=== PATIENT | male | born 1960 | race American Indian/Alaskan Native ===

== ENCOUNTER 2016-09-27 10:22 | Emergency (ER) | payer BC ==
[2016-09-27 10:34] VITALS: BP 147/95
== END 2016-09-27 13:51 | disposition left against medical advice (07) ==
LOC: ED 10:22
DX: S69.91XA Unspecified injury of right wrist, hand and finger(s), initial encounter (principal); F17.200 Nicotine dependence, unspecified, uncomplicated; X58.XXXA Exposure to other specified factors, initial encounter; Y93.89 Activity, other specified; Y99.9 Unspecified external cause status; Y92.89 Other specified places as the place of occurrence of the external cause; Z53.21 Procedure and treatment not carried out due to patient leaving prior to being seen by health care provider

== ENCOUNTER 2017-07-12 09:54 | Emergency (ER) | payer BC, OTHER ==
[2017-07-12 11:14] LABS: Bilirubin,Urine NEG (Negative); Blood,Urine LG (Negative); Color,Urine Yellow (Yellow); Mucus,Urine FEW /HPF; Nitrite,Urine NEG (Negative); Protein,Urine <15 mg/dL mg/dL (Negative); Urobilinogen,Urine < 2.0 mg/dL (<2.0)
[2017-07-12 12:33] LABS: Hematocrit 46.8 % (35.5-45.6); Mean Corpuscular HGB Conc 32 % (32-34); Mean Corpuscular Hemoglobin 32 pg (28-32); Mean Corpuscular Volume 100 fl (84-94); Platelet Count 168 K/mm3 (140-440); Red Blood Count 4.69 M/mm3 (3.65-5.03); Red Cell Distribution Width 13.3 % (13.2-15.2)
[2017-07-12 12:40] LABS: BUN/Creatinine Ratio 19; Blood Urea Nitrogen 17 mg/dL (9-20); Calcium 8.8 mg/dL (8.4-10.2); Hemolysis Index 10
--- NOTE | 2017-07-12 12:51 | Cat Scan Report ---
CT ABDOMEN PELVIS WITHOUT CONTRAST: HISTORY: Right sided renal colic, right flank pain. COMPARISON: none. TECHNIQUE: Helical CT in 1.25mm intervals without IV contrast. Sagittal and coronal reconstructions. FINDINGS: Lung bases: Normal. Liver: Normal. Biliary system: Normal. Pancreas: Normal. Spleen: Normal. Kidneys/ureters/bladder: Normal. Adrenal glands: Normal. Aorta: Normal. Intestines: Normal. Appendix: Normal. Pelvic viscera: Normal. Ascites: None. Adenopathy: None. Musculoskeletal: Normal. IMPRESSION: Unremarkable CT scan of the abdomen and pelvis without contrast.
--- NOTE | 2017-07-12 12:55 | Emergency Department Report ---
ED Male HPI - General Chief complaint: Urogenital-Male Stated complaint: BLOOD IN URINE Time Seen by Provider: 07/12/17 11:54 Source: patient Mode of arrival: Ambulatory Limitations: No Limitations - History of Present Illness Initial comments: 56-year-old male past medical history none presents with complaint of episode of hematuria/blood in ejaculate. Patient is awake alert and oriented 3 not in acute distress and nontoxic appearing. Fully lucid. Denies dysuria but does state he had one episode of hematuria and during intercourse yesterday had slightly bloody ejaculate. Patient noticed tiny amount of blood in his urine this morning. States he may have had right-sided flank pain earlier this week. Denies fever chills nausea vomiting. States he had slight nonproductive cough earlier this week. Patient does state that he is a smoker. Patient denies any rectal pain or difficulty defecating. MD Complaint: other (blood in ejaculate) Onset/Timin -: days(s) Location: penis blood in urine, other (blood in ejaculate) - Related Data Previous Rx's Medication Instructions Recorded Last Taken Type Lansoprazole [Prevacid] 15 mg PO BID #30 cap 09/30/14 Unknown Rx traMADol [Ultram] 50 mg PO Q6HR PRN #10 tablet 09/30/14 Unknown Rx Allergies Allergy/AdvReac Type Severity Reaction Status Date / Time No Known Allergies Allergy Unverified 09/30/14 07:09 ED Review of Systems ROS: Stated complaint: BLOOD IN URINE Other details as noted in HPI Constitutional: denies: chills, fever Eyes: denies: eye pain, eye discharge, vision change ENT: denies: ear pain, throat pain Respiratory: denies: cough, shortness of breath, wheezing Cardiovascular: denies: chest pain, palpitations Endocrine: no symptoms reported Gastrointestinal: denies: abdominal pain, nausea, diarrhea Genitourinary: as per HPI (blood in ejaculate). denies: urgency, dysuria Musculoskeletal: denies: back pain, joint swelling, arthralgia Skin: denies: rash, lesions Neurological: denies: headache, weakness, paresthesias Psychiatric: denies: anxiety, depression Hematological/Lymphatic: denies: easy bleeding, easy bruising ED Past Medical Hx - Past Medical History Previous Medical History?: No - Social History Smoking Status: Light Tobacco Smoker Substance Use Type: Alcohol - Medications Home Medications: Home Medications Medication Instructions Recorded Confirmed Last Taken Type Lansoprazole [Prevacid] 15 mg PO BID #30 cap 09/30/14 Unknown Rx traMADol [Ultram] 50 mg PO Q6HR PRN #10 tablet 09/30/14 Unknown Rx ED Physical Exam - General Limitations: No Limitations General appearance: alert, in no apparent distress - Head Head exam: Present: atraumatic, normocephalic - Eye Eye exam: Present: normal appearance, PERRL, EOMI - ENT ENT exam: Present: mucous membranes moist - Neck Neck exam: Present: normal inspection - Respiratory Respiratory exam: Present: normal lung sounds bilaterally. Absent: respiratory distress - Cardiovascular Cardiovascular Exam: Present: regular rate, normal rhythm. Absent: systolic murmur, diastolic murmur, rubs, gallop - GI/Abdominal GI/Abdominal exam: Present: soft (abdomen soft nontender nondistended for quadrants no suprapubic pain), normal bowel sounds - Rectal Rectal exam: Present: normal inspection (no rectal pain on JERMAINE) - exam: Present: normal inspection External exam: Present: normal external exam (no swelling no tenderness of testes bilaterally) - Extremities Exam Extremities exam: Present: normal inspection - Back Exam Back exam: Present: normal inspection, other (NO FLANK TENDERSS ON PERCUSSIOn b/ l) - Neurological Exam Neurological exam: Present: alert, oriented X3 - Psychiatric Psychiatric exam: Present: normal affect, normal mood - Skin Skin exam: Present: warm, dry, intact, normal color. Absent: rash ED Course Vital Signs 07/12/17 10:24 Temperature 99 F Pulse Rate 60 Respiratory 18 Rate Blood Pressure 121/72 O2 Sat by Pulse 99 Oximetry ED Medical Decision Making - Lab Data Result diagrams: 07/12/17 12:10 07/12/17 12:10 - Medical Decision Making A/P: Slight elevation in creatinine kinase, 1-2 episodes of hematuria/bloody ejaculate 1- I referred to [email or web address] recommendation on hematospermia media [email or web address] [email or web address]_type=[email or web address]_[email or web address] 2-CT scan shows no kidney stone 3-urine chlamydia and gonorrhea cultures sent, urine culture sent. Patient has no clinical signs of urethritis or prostatitis at this time 4-advised patient to follow up with urology and emphasized the importance of urologic follow-up. Patient stated he understood. I advised patient to return to the ED for any fevers chills dysuria persistent or large hematuria nausea vomiting or rectal pain. 5- patient tolerating by mouth fluids without difficulty with normal vital signs. I advised patient to remain well-hydrated to mitigate slight elevation in creatinine kinase. Patient has no overt clinical signs of rhabdomyolysis Critical care attestation.: If time is entered above; I have spent that time in minutes in the direct care of this critically ill patient, excluding procedure time. ED Disposition Clinical Impression: Hematospermia, Elevated creatine kinase level Hematuria Qualifiers: Hematuria type: unspecified type Qualified Code(s): R31.9 - Hematuria, unspecified Disposition: DC-01 TO HOME OR SELFCARE Is pt being admited?: No Does the pt Need Aspirin: No Condition: Stable Instructions: Dehydration (ED), Acute Hematuria (ED) Referrals: [facility] [Outside] - 3-5 Days [facility] [Provider Group] - 3-5 Days Forms: Accompanied Note, Work/School Release Form(ED) Time of Disposition: 13:19
[2017-07-12 13:18] LABS: Basophils % (Manual) 0 % (0.0-1.8); Platelet Estimate Consistent w Auto; RBC Morphology Normal; Total Cells Counted 100
[2017-07-12 13:38] VITALS: BP 131/72
== END 2017-07-12 13:37 | disposition home or self-care (01) ==
LOC: ED 09:54
DX: R36.1 Hematospermia (principal); R31.9 Hematuria, unspecified; R74.8 Abnormal levels of other serum enzymes
CPT/HCPCS: 36415; 74176; 80048; 81001; 82550; 85007; 85025; 87086; 87591; 99284